=== PATIENT | male | born 1945 | race African-American/Black ===

== ENCOUNTER 2017-03-01 21:35 | Emergency (ER) | payer OTHER, MEDICARE ==
[~2017-03-01] VITALS: Ht 180.3 cm; Wt 77.0 kg
[2017-03-02 02:37] VITALS: BP 134/75
== END 2017-03-02 02:40 | disposition home or self-care (01) ==
LOC: ER 22:33
DX: S16.1XXA Strain of muscle, fascia and tendon at neck level, initial encounter (principal); I10 Essential (primary) hypertension; R51 Headache; V49.40XA Driver injured in collision with unspecified motor vehicles in traffic accident, initial encounter; Y93.89 Activity, other specified; Y99.8 Other external cause status; Y92.89 Other specified places as the place of occurrence of the external cause
CPT/HCPCS: 70450; 72125; 99284; Z7610